=== PATIENT | female | born 1945 | race Caucasian/White ===

== ENCOUNTER 2019-10-21 07:35 | Outpatient (CLI) | payer OTHER | END 2019-10-21 07:49 | disposition home or self-care (01) | LOC: NUCLEAR 07:35 | DX: I87.2 Venous insufficiency (chronic) (peripheral) (principal) ==

== ENCOUNTER 2019-10-28 08:48 | Outpatient (CLI) | payer OTHER | END 2019-10-28 08:49 | disposition home or self-care (01) | LOC: MRI 08:48 | DX: M54.5 Low back pain (principal) | CPT/HCPCS: 72148 ==

== ENCOUNTER → 2019-10-28 | Outpatient (CLI) | payer OTHER | END | disposition home or self-care (01) | LOC: NUCLEAR 10:00 | DX: G08 Intracranial and intraspinal phlebitis and thrombophlebitis (principal); I67.89 Other cerebrovascular disease ==

== ENCOUNTER 2019-11-22 09:55 | Outpatient (CLI) | payer OTHER | END 2019-11-22 09:57 | disposition home or self-care (01) | LOC: MAMO-SONO 09:55 | PROVIDERS: ATTEND Physical Medicine & Rehabilitation | DX: N63.14 Unspecified lump in the right breast, lower inner quadrant (principal); Z12.31 Encounter for screening mammogram for malignant neoplasm of breast ==

== ENCOUNTER 2019-11-22 11:56 | Outpatient (CLI) | payer OTHER | END 2019-11-22 13:26 | disposition home or self-care (01) | LOC: NUCLEAR 11:56 | PROVIDERS: ATTEND Physical Medicine & Rehabilitation | DX: M81.0 Age-related osteoporosis without current pathological fracture (principal) ==

== ENCOUNTER 2019-12-20 15:05 | Outpatient (CLI) | payer OTHER | END 2019-12-20 15:13 | disposition home or self-care (01) | LOC: SONOGRAMA 15:05 | DX: R10.2 Pelvic and perineal pain (principal) ==

== ENCOUNTER 2020-03-08 10:04 | Outpatient (CLI) | payer OTHER | END 2020-03-08 10:14 | disposition home or self-care (01) | LOC: SONOGRAMA 10:04 | PROVIDERS: ATTEND Internal Medicine Endocrinology, Diabetes & Metabolism | DX: E04.1 Nontoxic single thyroid nodule (principal) ==

== ENCOUNTER → 2020-04-25 | Outpatient (CLI) | payer OTHER | END | disposition home or self-care (01) | LOC: RAD 08:03 | PROVIDERS: ATTEND Urology | DX: N20.0 Calculus of kidney (principal); J45.998 Other asthma ==

== ENCOUNTER 2021-05-17 09:49 | Outpatient (CLI) | payer OTHER | END 2021-05-17 10:02 | disposition home or self-care (01) | LOC: NUCLEAR 09:49 | PROVIDERS: ATTEND Internal Medicine Cardiovascular Disease | DX: I87.2 Venous insufficiency (chronic) (peripheral) (principal) ==

== ENCOUNTER 2021-05-21 12:59 | Outpatient (CLI) | payer OTHER | END 2021-05-21 13:13 | disposition home or self-care (01) | LOC: MAMO-SONO 12:59 | PROVIDERS: ATTEND Internal Medicine Cardiovascular Disease | DX: N63.11 Unspecified lump in the right breast, upper outer quadrant (principal) ==

== ENCOUNTER 2022-03-12 12:58 | Outpatient (CLI) | payer OTHER | END 2022-03-12 13:02 | disposition home or self-care (01) | LOC: SONOGRAMA 12:58 | PROVIDERS: ATTEND Internal Medicine Endocrinology, Diabetes & Metabolism | DX: E04.1 Nontoxic single thyroid nodule (principal) ==

== ENCOUNTER 2022-03-12 13:24 | Outpatient (CLI) | payer OTHER | END 2022-03-12 13:28 | disposition home or self-care (01) | LOC: NUCLEAR 13:24 | PROVIDERS: ATTEND Internal Medicine Cardiovascular Disease | DX: M81.0 Age-related osteoporosis without current pathological fracture (principal); E55.9 Vitamin D deficiency, unspecified ==

== ENCOUNTER 2022-05-29 13:09 | Outpatient (CLI) | payer OTHER ==
[~2022-05-29 13:09] MED LIST: CHILDREN'S ASPI81 MG PO; COZAAR50 MG PO; DOXYCYCLINE HY100 MG PO; FOSAMAX70 MG PO; LEVOTHYROXINE25 MCG PO; LIPITOR20 MG PO; Tylenol #3 PO; VERAPAMIL HCL80 MG PO
== END 2022-05-29 13:25 | disposition home or self-care (01) ==
LOC: MAMO-SONO 13:09
PROVIDERS: ATTEND Internal Medicine Cardiovascular Disease
DX: N63.11 Unspecified lump in the right breast, upper outer quadrant (principal)

== ENCOUNTER 2023-04-20 10:53 | Outpatient (CLI) | payer OTHER | END 2023-04-20 10:54 | disposition home or self-care (01) | LOC: NUCLEAR 10:53 | PROVIDERS: ATTEND Internal Medicine Cardiovascular Disease | DX: I87.2 Venous insufficiency (chronic) (peripheral) (principal) ==

== ENCOUNTER 2024-03-07 11:06 | Outpatient (CLI) | payer OTHER | END 2024-03-07 11:17 | disposition home or self-care (01) | LOC: RAD 11:06 | PROVIDERS: ATTEND Internal Medicine Cardiovascular Disease | DX: M12.9 Arthropathy, unspecified (principal) ==

== ENCOUNTER → 2024-07-06 | Outpatient (CLI) | payer OTHER | END | disposition home or self-care (01) | LOC: MRI 10:53 | DX: M67.472 Ganglion, left ankle and foot (principal); Q85.00 Neurofibromatosis, unspecified | CPT/HCPCS: 73718; 73721 ==

== ENCOUNTER 2025-05-01 08:23 | Outpatient (CLI) | payer OTHER | END 2025-05-01 08:27 | disposition home or self-care (01) | LOC: MAMO-SONO 08:23 | PROVIDERS: ATTEND Internal Medicine Cardiovascular Disease | DX: E04.1 Nontoxic single thyroid nodule (principal); N60.12 Diffuse cystic mastopathy of left breast; N60.11 Diffuse cystic mastopathy of right breast; Z12.31 Encounter for screening mammogram for malignant neoplasm of breast ==

== ENCOUNTER → 2025-05-22 | Outpatient (CLI) | payer OTHER | END | disposition home or self-care (01) | LOC: NUCLEAR 09:13 | PROVIDERS: ATTEND Internal Medicine Cardiovascular Disease | DX: M81.0 Age-related osteoporosis without current pathological fracture (principal) ==